=== PATIENT | female | born 1965 ===

== ENCOUNTER 2019-01-12 14:27 | Emergency (ER) | payer OTHER ==
[2019-01-12 15:15] VITALS: BP 139/82
--- NOTE | 2019-01-24 13:53 | UC ---
Complaint Female HPI - HPI Summary HPI Summary: UTI symptoms with burning on urination for 3 weeks. Pt states it improved and then would come back. She also has a tick embedded in her posterior right shoulder...thinks only about 24 hours, but unsure. - History Of Current Complaint Chief Complaint: JONIkin Stated Complaint: TICK BITE Time Seen by Provider: 01/12/19 14:56 Hx Obtained From: Patient ?: No Onset/Duration: Gradual Onset Timing: Intermittent Severity Initially: Mild Severity Currently: Mild Pain Intensity: 0 Pain Scale Used: 0-10 Numeric Character: Burning Aggravating Factor(s): Urination Alleviating Factor(s): Nothing Associated Signs And Symptoms: Positive: Negative - Allergies/Home Medications Allergies/Adverse Reactions: Allergies Allergy/AdvReac Type Severity Reaction Status Date / Time No Known Allergies Allergy Verified 01/12/19 15:15 Home Medications: Home Medications Metformin HCl 500 mg PO QID 01/12/19 [History Confirmed 01/12/19] Rosuvastatin Calcium [Crestor] 20 mg PO DAILY 01/12/19 [History Confirmed ] PMH/Surg Hx/FS Hx/Imm Hx Previously Healthy: Yes - Surgical History Surgical History: None - Family History Known Family History: Positive: Non-Contributory - Social History Occupation: Employed Part-time Lives: With Family Alcohol Use: Occasionally Substance Use Type: None Smoking Status (MU): Never Smoked Tobacco Review of Systems All Other Systems Reviewed And Are Negative: Yes Skin: Positive: Other - Tick embedded in right posterior shoulder Genitourinary: Positive: Dysuria, Frequency, Urgency Is Patient Immunocompromised?: No Physical Exam Triage Information Reviewed: Yes Appearance: Well-Appearing, No Pain Distress, Well-Nourished Vital Signs: Initial Vital Signs Temp 98.5 F 01/12/19 15:08 Pulse 78 01/12/19 15:08 Resp 18 01/12/19 15:08 BP 139/82 01/12/19 15:08 Pulse Ox 99 01/12/19 15:08 Vital Signs Reviewed: Yes Respiratory: Positive: Lungs clear, Normal breath sounds, No respiratory distress, No accessory muscle use Cardiovascular: Positive: RRR, No Murmur, Pulses Normal, Brisk Capillary Refill Abdomen Description: Positive: Nontender, No Organomegaly, Soft. Negative: CVA Tenderness (R), CVA Tenderness (L), Distended, Guarding, Hepatomegaly, Splenomegaly Bowel Sounds: Positive: Present Musculoskeletal Exam: Normal Neurological Exam: Normal Psychological Exam: Normal Skin: Positive: Other - Non-engorged tick embedded in right shoulder Complaint Female Dx - Course Course Of Treatment: Tick was removed without difficulty using the "Tick Twister". Urine positive for UTI. Will treat with Doxycycline 200 mg to cover the tick bite and Bactrim DS for the UTI. - Differential Dx/Diagnosis Provider Diagnosis: UTI (urinary tract infection), Tick bite Discharge ED - Sign-Out/Discharge Documenting (check all that apply): Patient Departure All imaging exams completed and their final reports reviewed: No Studies - Discharge Plan Condition: Good Disposition: HOME Prescriptions: DOXYcycline CAP(*) [DOXYcycline 100MG CAP(*)] 200 mg PO DAILY 1 Days #2 cap Sulfamethox/Trimethoprim DS* [Bactrim DS 800/160 TAB*] 1 tab PO BID 5 Days #10 tab Patient Education Materials: Urinary Tract Infection in Women (DC), Tick Bite ( ED) Referrals: [facility] [Outside] No Primary Care Phys,NOPCP [Primary Care Provider] - Additional Instructions: No dairy products, antacids or multivitamins 2 hours before you take the doxycycline and 2 hours after however take it with food. Take the Bactrim with food treated follow-up with your primary care provider if no improvement in 3 or 4 days. Go to the emergency room if you develop fever, backache, vomiting and unable keep the medication down. - Billing Disposition and Condition Condition: GOOD Disposition: Home
== END 2019-01-12 16:15 | disposition home or self-care (01) ==
LOC: UCEAST 14:27
DX: N39.0 Urinary tract infection, site not specified (principal); S40.261A Insect bite (nonvenomous) of right shoulder, initial encounter; W57.XXXA Bitten or stung by nonvenomous insect and other nonvenomous arthropods, initial encounter; Y92.9 Unspecified place or not applicable
CPT/HCPCS: 81003; 87077; 87086; 87186; 99202; G0463